=== PATIENT | male | born 1980 | race Caucasian/White ===

== ENCOUNTER 2024-04-13 09:08 | Emergency (ER) | payer OTHER ==
[~2024-04-13] VITALS: Ht 175.3 cm; Wt 89.0 kg
[2024-04-13 09:11] VITALS: O2SAT 97
[2024-04-13] MEDS: ACETAMINOPHEN 325MG TABLET PO ONE (09:27)
[2024-04-13 12:57] VITALS: BP 141/81; PULSE 78; RESP 18; TEMP 98.2
== END 2024-04-13 13:14 | disposition home or self-care (01) ==
LOC: ER 10:10
DX: R42 Dizziness and giddiness (principal); E11.9 Type 2 diabetes mellitus without complications; I10 Essential (primary) hypertension; Z98.890 Other specified postprocedural states; Z04.1 Encounter for examination and observation following transport accident; V98.8XXA Other specified transport accidents, initial encounter; Y93.89 Activity, other specified; Y92.89 Other specified places as the place of occurrence of the external cause; Y99.8 Other external cause status
CPT/HCPCS: 93005; 99284